=== PATIENT | male | born 1985 | race Caucasian/White ===

== ENCOUNTER → 2016-03-19 | Outpatient (CLI) | payer OTHER ==
--- NOTE | 2016-03-20 01:51 | REP ---
Clinical: thoracic back pain. Technique: AP, lateral, and swimmers views. Findings: Alignment and kyphosis is maintained. Vertebral bodies intact. No acute fracture / compression injury or subluxation. No degenerative changes. Paravertebral soft tissues are normal. Impression: Normal thoracic spine series. Signed by Joseph Gould MD 03/20/2016 01:43 A
--- NOTE | 2016-03-20 01:52 | REP ---
Clinical: Acute back pain . Technique: AP, lateral, bilateral oblique, and coned-down views. Findings: Alignment and lordosis is maintained. The vertebral bodies including transverse process and spinous processes are intact and normal. There is no evidence for acute fracture / compression injury or subluxation. No evidence for spondylolysis or spondylolisthesis. No significant degenerative change is noted. Impression: Normal lumbosacral spine radiograph series. Signed by Joseph Gould MD 03/20/2016 01:44 A
== END ==
LOC: M LRY 19:41
PROVIDERS: ATTEND Physician Assistant
DX: M54.6 Pain in thoracic spine (principal)

== ENCOUNTER 2018-08-09 10:08 | Emergency (ER) | payer OTHER ==
[~2018-08-09] VITALS: Ht 177.8 cm; Wt 103.8 kg
[2018-08-09] MEDS ORDERED: LIDOCAINE 2% MDV 20 ML VIAL SC ONE (10:45)
[2018-08-09] MEDS ORDERED: CLEO300C2 PO (11:29)
[2018-08-09] MEDS ORDERED: IBUP-1022 PO (11:29)
[2018-08-09] MEDS ORDERED: CLINDAMYCIN 150 MG CAP PO ONE (11:30)
[2018-08-09] MEDS ORDERED: IBUPROFEN 800 MG TAB PO ONE (11:30)
[2018-08-09 11:38] VITALS: BP 125/64
== END 2018-08-09 11:41 | disposition home or self-care (01) ==
LOC: M ED 10:08
DX: S60.450A Superficial foreign body of right index finger, initial encounter (principal); W26.8XXA Contact with other sharp object(s), not elsewhere classified, initial encounter; W45.8XXA Other foreign body or object entering through skin, initial encounter; Y92.9 Unspecified place or not applicable; Y93.89 Activity, other specified

== ENCOUNTER → 2018-08-09 | Outpatient (CLI) | payer OTHER ==
[~2018-08-09] MED LIST: CLEO300C2 PO; IBUP-1022 PO
--- NOTE | 2018-08-09 10:41 | REP ---
Right index finger four views: There is a fishhook impaled in the soft tissues distally. There is no fracture or dislocation. No calcifications or foreign bodies, otherwise. Electronically Signed by Tyrese Ku MD 08/09/2018 10:33 A
== END ==
LOC: M WUC 09:27
PROVIDERS: ATTEND Physician Assistant
DX: S61.240A Puncture wound with foreign body of right index finger without damage to nail, initial encounter (principal); X58.XXXA Exposure to other specified factors, initial encounter; Y92.89 Other specified places as the place of occurrence of the external cause

== ENCOUNTER → 2020-03-02 | Outpatient (CLI) | payer SELFPAY | LOC: M LABSMTC 10:18 | PROVIDERS: ATTEND Pediatrics | DX: Z20.822 Contact with and (suspected) exposure to COVID-19 (principal) ==

== ENCOUNTER → 2020-03-23 | Outpatient (CLI) | payer SELFPAY | LOC: M LABSMTC 10:33 | PROVIDERS: ATTEND Pediatrics | DX: Z20.822 Contact with and (suspected) exposure to COVID-19 (principal) ==